=== PATIENT | female | born 2000 | race Caucasian/White ===

== ENCOUNTER 2022-06-12 11:39 | Outpatient (CLI) | payer OTHER | END 2022-06-13 12:11 | disposition home or self-care (01) | LOC: OBS/DEL 11:39 | PROVIDERS: ATTEND Obstetrics & Gynecology | DX: O26.892 Other specified pregnancy related conditions, second trimester (principal); Z3A.25 25 weeks gestation of pregnancy; R10.2 Pelvic and perineal pain ==